=== PATIENT | female | born 1965 | race African-American/Black ===

== ENCOUNTER 2018-06-02 03:13 | Emergency (ER) | payer SELFPAY ==
[~2018-06-02] VITALS: Ht 175.3 cm; Wt 74.8 kg
[2018-06-02 03:19] VITALS: BP 166/111
[2018-06-02] MEDS ORDERED: cloNIDine HCL 0.1 MG TAB PO ONE (03:30)
== END 2018-06-02 06:22 | disposition left against medical advice (07) ==
LOC: ER 03:15
DX: I10 Essential (primary) hypertension (principal); Z53.21 Procedure and treatment not carried out due to patient leaving prior to being seen by health care provider
CPT/HCPCS: 99281; J7030